=== PATIENT | male | born 1990 | race Caucasian/White ===

== ENCOUNTER → 2021-06-22 06:38 | Outpatient (CLI) | payer OTHER, SELFPAY ==
--- NOTE | 2021-06-22 | DI.MRI.S_ITS ---
PROCEDURE: MR LUMBAR SPINE WO/W CON INDICATIONS: Paresthesia of skin TECHNIQUE: Noncontrast sagittal T1 spin echo and T2 fast spin echo, sagittal STIR, axial T1 and T2 fast spin echo through the lumbar spine. In cases with scoliosis, additional coronal T2 fast spin echo may be performed. After the administration of contrast, sagittal and axial T1 spin echo with fat saturation through the lumbar spine. COMPARISON: None. FINDINGS: Image quality: Excellent. Alignment and curvature: There is normal bony alignment. Marrow: Marrow is of normal overall signal. No acute vertebral body compression fractures. No suspicious marrow enhancement. Spinal cord: Normal position and appearance of the conus. No abnormal intradural enhancement. Regional soft tissues: No paravertebral masses or abnormal enhancement. T12-L1: Normal appearance. L1-L2: Normal appearance. L2-L3: Normal appearance. L3-L4: Normal appearance. L4-L5: Disc desiccation and disc height loss with a small annular fissure of the disc posteriorly (series 6, image 11). No spinal canal or neural foraminal stenosis. The L5-S1: Disc desiccation and disc height loss. Small annular fissure of the disc posteriorly (series 6, image 12). No spinal canal or neural foraminal stenosis. IMPRESSION Minimal degenerative changes at L4-L5 and L5-S1. No intradural mass or abnormal intradural enhancement. No abnormal signal in the cord/conus. Dictated by: Patrick Brito M.D. on 06/22/2021 at 9:29 Approved by: Patrick Brito M.D. on 06/22/2021 at 9:31
--- NOTE | 2021-06-22 | DI.MRI.S_ITS ---
PROCEDURE: MR THORACIC SPINE WO/W CON INDICATIONS: Paresthesia of skin TECHNIQUE: Noncontrast sagittal T1 spin echo and T2 fast spin echo, sagittal STIR, axial T1 and T2 fast spin echo through the thoracic spine. After the administration of contrast, axial and sagittal T1 spin echo with fat saturation through the thoracic spine. COMPARISON: None. FINDINGS: Image quality: Excellent. Alignment and curvature: There is normal bony alignment. Marrow: Marrow is of normal overall signal. No acute vertebral body compression fractures. Spinal cord: Visualized spinal cord is of normal signal and size, without abnormal enhancement. Paraspinous soft tissues: No paravertebral masses or abnormal enhancement. Miscellaneous: Central canal and foramina appear widely patent at all scanned levels. IMPRESSION: Normal MRI of the thoracic spine. Dictated by: Patrick Brito M.D. on 06/22/2021 at 9:35 Approved by: Patrick Brito M.D. on 06/22/2021 at 9:39
== END ==
DX: R20.2 Paresthesia of skin (principal)
CPT/HCPCS: 72157; 72158; A9579